=== PATIENT | male | born 1995 | race Two or more races ===

== ENCOUNTER 2016-08-07 20:52 | Emergency (ER) | payer MEDICAID ==
[2016-08-07 21:05] VITALS: BP 142/65; PULSE 65; RESP 15; TEMP 98.4; O2SAT 97
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
== END 2016-08-07 22:55 | disposition home or self-care (01) ==
LOC: CED 20:52
DX: S06.0X0A Concussion without loss of consciousness, initial encounter (principal); S00.83XA Contusion of other part of head, initial encounter; Y00.XXXA Assault by blunt object, initial encounter
CPT/HCPCS: 70450-PO; G0463-PO